=== PATIENT | female | born 1985 | race Two or more races ===

== ENCOUNTER 2018-06-07 20:33 | Emergency (ER) | payer MEDICAID ==
[~2018-06-07] VITALS: Ht 154.9 cm; Wt 77.1 kg
[2018-06-07 20:44] VITALS: BP 136/77
== END 2018-06-07 21:49 | disposition home or self-care (01) ==
LOC: ER 20:33
DX: M25.511 Pain in right shoulder (principal); R20.2 Paresthesia of skin; G89.29 Other chronic pain; M54.9 Dorsalgia, unspecified; D64.9 Anemia, unspecified; W01.0XXA Fall on same level from slipping, tripping and stumbling without subsequent striking against object, initial encounter; Y93.89 Activity, other specified; Y92.89 Other specified places as the place of occurrence of the external cause; Y99.8 Other external cause status

== ENCOUNTER 2019-03-09 11:28 | Emergency (ER) | payer BC, OTHER ==
[~2019-03-09] VITALS: Ht 154.9 cm; Wt 78.9 kg
--- NOTE | 2019-03-09 11:33 | NUR ---
Ayana kessler in [facility] - 03/09/19 at 1133 by ISHMAEL URINE SPECIMEN COLLECTED AND SENT TO LAB.
--- NOTE | 2019-03-09 11:40 | NUR ---
BIB SELF C/O NAUSEA, HEADACHE FOR 3 DAYS. SEEN AT URGENT [facility]ARE 3 DAYS AGO DX:DEHYDRATION PER PT. PATIENT A/OX4, BREATHING EVEN AND UNLABORED, NO SOB NOTED, DENIES ABDOMINAL PAIN AT THIS TIME. KEPT COMFORTABLE.
[2019-03-09] MEDS ORDERED: ONDANSETRON HCL/PF 4 MG/2 ML VIAL ONE (11:51)
[2019-03-09] MEDS ORDERED: IV NS 0.9% 1,000 ML BAG IV ONE (12:00)
[2019-03-09] MEDS ORDERED: ONDANSETRON HCL/PF 4 MG/2 ML VIAL IVP ONE (12:00)
[2019-03-09] MEDS ORDERED: ACETAMINOPHEN ES 500 MG TABLET ONE (12:07)
[2019-03-09 12:09] LABS: APPEARANCE,URINE Clear (CLEAR); BILIRUBIN,URINE MODERATE (NEGATIVE); BLOOD, URINE Large Ery/uL (NEGATIVE); KETONES,URINE 40 (NEGATIVE); LEUKOCYTE ESTERASE ,URINE Negative (NEGATIVE); NITRITE, URINE Negative (NEGATIVE); PH,URINE 5.5 (5.0-8.0); PROTEIN,URINE 100 mg/dl (NEGATIVE); UGLUCOSE Negative (NEGATIVE)
[2019-03-09 12:10] LABS: BASOPHILS % (AUTO) 0.3 % (0.0-2.0); EOSINOPHILS % (AUTO) 1.5 % (0.0-6.0); HEMATOCRIT 40 % (33-45); HEMOGLOBIN 12.7 g/dL (11.5-14.8); LYMPHOCYTES % (AUTO) 27.6 % (20.0-44.0); MEAN CORPUSCULAR HGB CONC 32 g/dl (31.0-36.0); MEAN CORPUSCULAR VOLUME 81 fL (82-100); MONOCYTES # (AUTO) 0.5 /CMM (0.1-1.30); MONOCYTES % (AUTO) 6.8 % (2.0-12.0); NEUTROPHILS # (AUTO) 4.6 /CMM (1.8-8.9); NEUTROPHILS % (AUTO) 63.8 % (43.0-81.0); PLATELET COUNT (AUTO) 356 /CMM (150-450); RED BLOOD CELL COUNT(AUTO) 4.93 MIL/uL (4.0-5.2); WHITE BLOOD COUNT (AUTO) 7.2 K/uL (4.3-11.0)
[2019-03-09 12:19] LABS: BACTERIA,URINE None seen /HPF (None Seen); COLOR,URINE RED (YELLOW); RBC,URINE TOO NUMEROUS TO COUN /HPF (0-2); SQUAMOUS EPITHELIAL CELL,UR Few /HPF (None Seen); WBC,URINE NONE SEEN /HPF (0-3)
[2019-03-09 12:29] LABS: CALCIUM, SERUM 9.3 mg/dL (8.5-10.1); CREATININE 0.9 mg/dL (0.6-1.3); POTASSIUM 3.3 mmol/L (3.5-5.1)
[2019-03-09] MEDS ORDERED: ACETAMINOPHEN ES 500 MG TABLET PO ONE (12:30)
[2019-03-09 12:43] LABS: ALBUMIN 3.7 g/dL (3.4-5.0); BILIRUBIN,TOTAL 0.3 mg/dL (0.2-1.0)
[2019-03-09 13:12] VITALS: BP 119/75
--- NOTE | 2019-03-09 13:12 | NUR ---
Patient stated she feels better. IV removed. Catheter intact and site benign. Pressure and 4x4 applied to site. No bleeding noted.Patient discharged to home in stable condition. Written and verbal after care instructions given. Patient verbalizes understanding of instruction.
== END 2019-03-09 13:13 | disposition home or self-care (01) ==
LOC: ER 11:34
DX: R11.0 Nausea (principal); Z98.890 Other specified postprocedural states
CPT/HCPCS: 36415; 80048; 80076; 81001; 83690; 84703; 85025; 96374; 99283; J2405; J7030; 81000-TC

== ENCOUNTER 2019-05-10 23:28 | Emergency (ER) | payer BC, OTHER ==
[~2019-05-10] VITALS: Ht 152.4 cm; Wt 69.9 kg
[2019-05-11] MEDS ORDERED: ONDANSETRON HCL/PF 4 MG/2 ML VIAL ONE (00:29)
[2019-05-11] MEDS ORDERED: KETOROLAC TROMETHAMINE INJ 30 MG/ML VIAL ONE (00:29)
[2019-05-11] MEDS ORDERED: ONDANSETRON HCL/PF 4 MG/2 ML VIAL IVP ONE (00:30)
[2019-05-11] MEDS ORDERED: IV NS 0.9% 1,000 ML BAG IV ONE (00:30)
[2019-05-11] MEDS ORDERED: KETOROLAC TROMETHAMINE INJ 30 MG/ML VIAL IV ONE (00:30)
[2019-05-11 00:38] LABS: BASOPHILS % (AUTO) 0.4 % (0.0-2.0); EOSINOPHILS % (AUTO) 1.6 % (0.0-6.0); HEMATOCRIT 35 % (33-45); HEMOGLOBIN 11.4 g/dL (11.5-14.8); LYMPHOCYTES # (AUTO) 3.3 /CMM (0.8-4.8); LYMPHOCYTES % (AUTO) 40.1 % (20.0-44.0); MEAN CORPUSCULAR HGB CONC 33 g/dl (31.0-36.0); MEAN CORPUSCULAR VOLUME 83 fL (82-100); MONOCYTES # (AUTO) 0.5 /CMM (0.1-1.30); MONOCYTES % (AUTO) 5.7 % (2.0-12.0); NEUTROPHILS # (AUTO) 4.3 /CMM (1.8-8.9); NEUTROPHILS % (AUTO) 52.2 % (43.0-81.0); PLATELET COUNT (AUTO) 407 /CMM (150-450); RED BLOOD CELL COUNT(AUTO) 4.16 MIL/uL (4.0-5.2); WHITE BLOOD COUNT (AUTO) 8.2 K/uL (4.3-11.0)
--- NOTE | 2019-05-11 00:39 | NUR ---
BIBS FROM HOME TO ER BED 7. AAOX4. NOT IN RESP DISTRESS. AMBULATORY. C/O LOWER ABD PAIN STARTED @ 1900. PT RATES PAIN 8/10 CRAMPING SENSATION. PT DOES REPORT NAUSEA BUT NO VOMITING. LAST BM TODAY BUT REPROTS HER BM AT "PENCIL LIKE STOOL". MD WAS AT BEDSIDE FOR EVAL. ORDERS RECEIVED NOTED AND CARRIED OUT. IV LINE OBTAINED ON L AC 20G. BLOOD DRAW AND GIVEN TO HOUSEKEEPING AID AT BEDSIDE. MEDICATED ORDERED. WAIVER ALSO OBTAINED
[2019-05-11 00:48] LABS: CREATININE 0.8 mg/dL (0.6-1.3); POTASSIUM 3.5 mmol/L (3.5-5.1)
[2019-05-11 00:55] LABS: ALBUMIN 3.8 g/dL (3.4-5.0); BILIRUBIN,DIRECT 0.1 mg/dL (0.0-0.2); BILIRUBIN,TOTAL 0.3 mg/dL (0.2-1.0); TOTAL PROTEIN, SERUM 7.2 g/dL (6.4-8.2)
[2019-05-11 01:00] LABS: APPEARANCE,URINE Clear (CLEAR); BILIRUBIN,URINE SMALL (NEGATIVE); BLOOD, URINE Trace-intact Ery/uL (NEGATIVE); COLOR,URINE Orange (YELLOW); KETONES,URINE 15 (NEGATIVE); LEUKOCYTE ESTERASE ,URINE Negative (NEGATIVE); NITRITE, URINE Negative (NEGATIVE); PROTEIN,URINE 100 mg/dl (NEGATIVE); UGLUCOSE Negative (NEGATIVE)
--- NOTE | 2019-05-11 01:07 | NUR ---
[place]
--- NOTE | 2019-05-11 01:14 | NUR ---
PT RETURNED FROM CT.
[2019-05-11 01:29] LABS: BACTERIA,URINE Few /HPF (None Seen); RBC,URINE 21-50 /HPF (0-2); SQUAMOUS EPITHELIAL CELL,UR Moderate /HPF (None Seen)
[2019-05-11 01:30] LABS: MUCUS,URINE Many /LPF (None Seen)
--- NOTE | 2019-05-11 02:04 | NUR ---
CALLING JODI RE: CT READ.
--- NOTE | 2019-05-11 02:30 | NUR ---
IV removed. Catheter intact and site benign. Pressure and 4x4 applied to site. No bleeding noted. Patient discharged to home in stable condition. Written and verbal after care instructions given. Patient verbalizes understanding of instruction. PT AMBULATED OUT WITH A STEADY GAIT. PT IS TAKING A TAXI HOME. VSS.
[2019-05-11 02:52] VITALS: BP 115/62
== END 2019-05-11 02:30 | disposition home or self-care (01) ==
LOC: ER 23:28
DX: R10.2 Pelvic and perineal pain (principal); Z98.890 Other specified postprocedural states
CPT/HCPCS: 36415; 74176; 80048; 80076; 81001; 83690; 84703; 85025; 96374; 96375; 99284; J1885; J2405; J7030; 81000-TC